=== PATIENT | female | born 1935 | race Caucasian/White ===

== ENCOUNTER → 2016-09-25 13:27 | Outpatient (CLI) | payer MEDICARE, BC ==
[2015-07-03 11:34] VITALS: BMI 23.8
[~2016-09-25 13:27] MED LIST: ATROVENT 0.02%2.5 ML UPD; AVELOX400 MG PO; BAYER ASPIRIN325 MG PO; BROVANA15 MCG/2 M INH; CARDIZEM30 MG PO; CATAPRES0.1 MG PO; DALIRESP500 MCG PO; FLORAJEN3 CAPS460 MG PO; FLUTICASONE PRO16 GM NASAL; GABAPENTIN100 MG PO; GLUCOPHAGE1000 MG PO; GLUCOPHAGE500 MG PO; METOPROLOL TART50 MG PO; MUCINEX DM ER1 EAC1 PO; PLAQUENIL200 MG PO; PLAVIX75 MG PO; PREDNISONE10 MG PO; PROTONIX40 MG PO; PULMICORT0.5 MG/21 UPD; SINGULAIR10 MG PO; TESSALON PERLE100 MG PO; VITAMIN C1000 MG PO; XARELTO15 MG PO; XOPENEX 0.0.63 MG/3 UPD
== END | disposition home or self-care (01) ==
LOC: D.US 13:27
DX: I65.23 Occlusion and stenosis of bilateral carotid arteries (principal)

== ENCOUNTER 2016-11-09 09:11 | Inpatient (IN) | payer MEDICARE, BC ==
[~2016-11-09] VITALS: Ht 167.6 cm; Wt 72.9 kg
[~2016-11-09 09:11] MED LIST changes: -ATROVENT 0.02%2.5 ML UPD; -AVELOX400 MG PO; -BROVANA15 MCG/2 M INH; -CATAPRES0.1 MG PO; -DALIRESP500 MCG PO; -FLORAJEN3 CAPS460 MG PO; -FLUTICASONE PRO16 GM NASAL; -GLUCOPHAGE1000 MG PO; -METOPROLOL TART50 MG PO; -MUCINEX DM ER1 EAC1 PO; -PREDNISONE10 MG PO; -PROTONIX40 MG PO; -PULMICORT0.5 MG/21 UPD; -SINGULAIR10 MG PO; -TESSALON PERLE100 MG PO; -XARELTO15 MG PO; -XOPENEX 0.0.63 MG/3 UPD
[2016-11-09 09:59] LABS: BASOPHILS 0.3 % (0.0-2.0); EOSINOPHILS 0 % (0-7); HEMATOCRIT 35.8 % (36.0-48.0); HEMOGLOBIN 11.9 g/dL (12-16); IMMATURE GRANULOCYTES 0.3 % (0-5); LYMPHOCYTES 3.5 % (15-50); MCH 29.2 pg (26.0-34.0); MCHC 33.2 g/dL (31.0-37.0); MEAN PLATELET VOLUME 9.7 fL (7.4-10.4); MONOCYTES 6.9 % (2-11); PLATELET COUNT 167 10x3/uL (130-400); RBC 4.07 10x6/uL (4.00-5.40); RDW 14.9 % (11.5-14.5); WBC 7.9 10x3/uL (4.8-10.8)
[2016-11-09 10:15] LABS: APTT 25.1 SECONDS (22.8-39.4); INR 1.62 (0.85-1.17); PROTIME 19.2 SECONDS (11.6-15.0)
[2016-11-09 10:21] LABS: ALBUMIN 2.9 g/dL (3.4-5.0); ALKALINE PHOSPHATASE 40 U/L (46-116); ALT (SGPT) 17 U/L (10-68); BILIRUBIN - TOTAL 0.95 mg/dL (0.2-1.3); CALC OSMOLALITY 283 mosm/kg (275-300); CARBON DIOXIDE 24.2 mmol/L (21.0-32.0); CHLORIDE - SERUM 100 mmol/L (98-107); CREATININE - SERUM 0.9 mg/dL (0.6-1.3); GLUCOSE 235 mg/dL (74-106); POTASSIUM - SERUM 3.9 mmol/L (3.5-5.1); PROTEIN - SERUM 7.5 g/dL (6.4-8.2); SODIUM 137 mmol/L (136-145); UREA NITROGEN 19 mg/dL (7-18); eGFR NON AFRICAN AMERICAN 64 mL/min (90-120)
[2016-11-09 10:30] LABS: AMYLASE - SERUM 31 U/L (25-115); CREATINE KINASE 42 UL (21-215); D-DIMER-QUANTITATIVE 4.14 ug/mLFEU (0.20-0.54); LIPASE 90 U/L (73-393); PRO BNP 1845 pg/mL (0-450); TROPONIN-I < 0.017 ng/mL (0.000-0.060)
[2016-11-09 10:54] LABS: APPEARANCE HAZY (CLEAR); BILIRUBIN NEGATIVE (NEGATIVE); COLOR YELLOW (YELLOW); GLUCOSE 500 mg/dL (NEGATIVE); KETONE MODERATE mg/dL (NEGATIVE); LEUKOCYTE ESTERASE NEGATIVE (NEGATIVE); NITRITE NEGATIVE (NEGATIVE); PROTEIN 3+ mg/dL (NEGATIVE); UROBILINOGEN NORMAL (NORMAL); WHITE CELLS - URINE NSEEN /hpf (0-5)
[2016-11-09 10:55] LABS: EPITHELIAL CELLS OCC /hpf (0-5); MUCUS >1+ /lpf (NONE SEEN); RED CELLS - URINE OCC /hpf (0-5); YEAST NONE SEEN /hpf (NONE SEEN)
[2016-11-09 10:56] LABS: AMORPHOUS SEDIMENT <1+ /lpf (NONE SEEN); BACTERIA MODERATE /hpf (NONE SEEN); GRANULAR CAST NONE SEEN /lpf (NONE SEEN); HYALINE CAST NONE SEEN /lpf (NONE SEEN); RED CELL CAST NONE SEEN /lpf (NONE SEEN); SPERMATOZOA NONE SEEN /hpf (NONE SEEN); WAXY CAST NONE SEEN /lpf (NONE SEEN)
--- NOTE | 2016-11-09 12:30 | NUR ---
PT ARRIVED TO UNIT, PT AAOX4. NO C/O PAIN. LEFT AC PIV WITH ABX AND CARDIZEM INFUSING. 3LNC. VSS. SHIFT ASSESSMENT COMPLETED, SEE FLOW SHEET. ROOM FREE OF CLUTTER, CALL LIGHT IN REACH, WILL CONTINUE TO MONITOR PT.
[2016-11-09] MEDS ORDERED: PREDNISONE10 MG PO (12:40)
[2016-11-09 12:41] VITALS: BP 134/77; BMI 24.2
[2016-11-09 13:00] VITALS: BP 129/73
[2016-11-09 14:00] VITALS: BP 125/68
[2016-11-09 15:00] VITALS: BP 164/84
--- NOTE | 2016-11-09 15:35 | NUR ---
DR. ARBOLEDA AT THE BEDSIDE, ALL QUESTIONS ANSWERED, VSS, WILL CONTINUE TO MONITOR PT.
[2016-11-09 16:00] VITALS: BP 129/76
--- NOTE | 2016-11-09 16:15 | NUR ---
CONTACTED DR. WADSWORTH OF FSBS OF 446, WILL CONTINUE TO MONITOR PT.
[2016-11-09 18:14] LABS: % SATURATION 4 % (15-55); IRON 11 ug/dl (35-150); TOTAL IRON BIND CAPACITY 241 ug/dl (260-445); UNSAT IRON BIND CAPACITY 230 ug/dl (150-375)
--- NOTE | 2016-11-09 18:31 | NUR ---
PT REPORT CALLED TO JUSTUS NORIEGA, PT TO TRANSFER TO ROOM 2139 VIA WHEELCHAIR. PT FAMILY INFORMED.
--- NOTE | 2016-11-09 18:43 | NUR ---
LEFT AC PIV INFILTRATED, REMOVED IV, TIP INTACT, RESITED IV TO LEFT FOREARM.
--- NOTE | 2016-11-09 19:15 | NUR ---
PT ARRIVED TO UNIT FROM ICU VIA WHEELCHAIR. DAUGHTER AT BEDSIDE. PT DENIES NEEDS. GIVEN REPORT TO SHARAD ADMINISTRATIVE SUPPORT ASSOCIATE LUZMA
--- NOTE | 2016-11-09 19:55 | NUR ---
ASSESSMENT DONE. PT SITTING UP IN BED WATCHING TV. A/O X3. FAMILY AT BEDSIDE. O2 AT 3L VIA NC. RESP LABORED. PT STATES SHE WEARS OXYGEN AT HOME AT 2LITER, BUT WHEN SHE WALKS AROUND SHE TURNS IT UP TO 3L. TELEMETRY PLACED ON PT, RUNNING SR AT 68. BSC PLACED NEXT TO BED. PT WEARING SCD'S NEEDS MACHINE FOR BED. PT DENIES OTHER NEEDS AT THIS TIME. NO DISTRESS NOTED. CALL LIGHT WITH IN REACH. WILL CONT. TO MONITOR. WILL NOTIFIED VICTORIAN LITERATURE PROFESSOR OF NEED FOR SCD MACHINE.
[2016-11-09 20:00] VITALS: BP 133/71
--- NOTE | 2016-11-09 23:56 | NUR ---
PT SLEEPING. EASILY AWAKEN. IV ANTIBIOTICS INFUSING. PT DENIES NEEDS AT THIS TIME. NO DISTRESS NOTED. FAMILY AT BEDSIDE. CALL LIGHT WITH IN REACH. WILL CONT. TO MONITOR.
[2016-11-10] VITALS: BP 130/66
--- NOTE | 2016-11-10 03:06 | NUR ---
PT SLEEPING. OPENED EYES WHEN NURSE OPENED DOOR. DENIES NEEDS. NO DISTRESS NOTED. FAMILY SLEEPING IN CHAIR AT BEDSIDE. CALL LIGHT WITH IN REACH. WILL CONT. TO MONITOR.
[2016-11-10 04:00] VITALS: BP 137/66
--- NOTE | 2016-11-10 05:17 | NUR ---
POLICY OFFICER AT BEDSIDE TO OBTAIN VITALS, CALL LIGHT IN REACH. WILL CONTINUE WITH PLAN OF CARE.
--- NOTE | 2016-11-10 06:32 | NUR ---
PT SITTING UP IN BED DRINKING COFFEE. FAMILY AT BEDSIDE. A/O. DENIES NEEDS. CALL LIGHT WITH IN REACH.
[2016-11-10 06:46] LABS: BASOPHILS 0 % (0.0-2.0); EOSINOPHILS 0 % (0-7); HEMATOCRIT 30.9 % (36.0-48.0); HEMOGLOBIN 10.3 g/dL (12-16); IMMATURE GRANULOCYTES 0.3 % (0-5); LYMPHOCYTES 3.4 % (15-50); MCH 28.9 pg (26.0-34.0); MCHC 33.3 g/dL (31.0-37.0); MCV 86.8 fL (80.0-100.0); MONOCYTES 4.4 % (2-11); NEUTROPHILS 91.9 % (40-80); PLATELET COUNT 188 10x3/uL (130-400); RBC 3.56 10x6/uL (4.00-5.40)
[2016-11-10 07:15] LABS: ALBUMIN 2.7 g/dL (3.4-5.0); ALKALINE PHOSPHATASE 41 U/L (46-116); ALT (SGPT) 15 U/L (10-68); BILIRUBIN - TOTAL 0.63 mg/dL (0.2-1.3); CALCIUM 8.4 mg/dL (8.5-10.1); CARBON DIOXIDE 22.9 mmol/L (21.0-32.0); CHLORIDE - SERUM 100 mmol/L (98-107); GLUCOSE 302 mg/dL (74-106); MAGNESIUM - SERUM 1.6 mg/dL (1.8-2.4); PROTEIN - SERUM 7.2 g/dL (6.4-8.2); SODIUM 135 mmol/L (136-145); eGFR NON AFRICAN AMERICAN 56 mL/min (90-120)
[2016-11-10 07:16] LABS: CALC OSMOLALITY 287 mosm/kg (275-300); TROPONIN-I < 0.017 ng/mL (0.000-0.060); UREA NITROGEN 31 mg/dL (7-18)
--- NOTE | 2016-11-10 07:50 | NUR ---
0700- AM ROUNDING. RECEIVED REPORT FROM SPRAY PAINTER HELPER NURSE SHARAD. PT IS CURRENTLY LAYIING IN BED ON BACK WITH EYES OPEN RESTING. GUEST MEMBER AT BEDSIDE. ON MONITOR SHOWING SR, HR 90. ALERT AND ORIENTED. ON 02 AT 3L VIA NC. IV SEEN TO LEFT FOREARM WITH NS RUNNING AT KVO. ON EP, WILL CHECK AM LABS AND TX PER PROTOCOL. ON LOVENOX INJECTION FOR DVT PREVENTION ORDERED PER REPORT. NO NEED AT CURRENT TIME. WILL CONTINUE TO MONITOR AND CONTINUE WITH PLAN OF CARE.
[2016-11-10] MEDS ORDERED: CARDIZEM30 MG PO (08:00)
[2016-11-10] MEDS ORDERED: GLUCOPHAGE1000 MG PO (08:01)
[2016-11-10] MEDS ORDERED: PLAVIX75 MG PO (08:01)
--- NOTE | 2016-11-10 11:25 | NUR ---
SHY NORIEGA ASKED ME TO INSERT 20G PIV SO PT CAN HAVE CT SCAN. INSERTED 20G PIV TO R HAND X2 STICKS. PT TOLERATED WELL. SIGNED AND DATED DRESSING. CALLED NOHEMI IN CT AND TOLD HER THAT PT WAS READY.
[2016-11-10 12:00] VITALS: BP 146/77
--- NOTE | 2016-11-10 12:04 | NUR ---
PT TO CT.
--- NOTE | 2016-11-10 12:15 | NUR ---
PT BACK FROM CT VIA BED.
--- NOTE | 2016-11-10 12:29 | NUR ---
PTS BLOOD SUGAR IS 405. COVERED PT WITH INSULIN ORDERED AND NOTFIED BARRETT KEE NP ORDERED. NO NEW ORDERS RECEIVED.
[2016-11-10 13:28] VITALS: Ht 167.6 cm; Wt 72.9 kg
[2016-11-10 16:00] VITALS: BP 127/63
--- NOTE | 2016-11-10 18:13 | NUR ---
AM ROUNDING- PT LAYING IN BED ON BACK WITH EYES OPEN RESTING. SPEECH PATHOLOGY IN ROOM NOW. FAMILY MEMBERS AT BEDSIDE. PTS IV TO LEFT FOREARM WAS ACCIDENTLY PULLED OUT BY PT. CLEANED SITE AND REMOVED IV WITH CATH TIP INTACT. COVERED SITE WITH 2X2 GUAZE AND SECURED WITH TAPE. PTS IV ANTIBIOTICS HOOKED UP TO OTHER IV IN RIGHT HAND. WILL CONTINUE TO MONITOR.
[2016-11-10 19:00] VITALS: BP 150/73
--- NOTE | 2016-11-10 20:10 | NUR ---
ASSESSMENT DONE. PT'S DAUGHTER ASSISTING PT WITH BED BATH. PT A/O. LABORED RESP, WHICH I AM TOLD BY DAUGHTER IS NORMAL FOR PT. SCD'S PLACED ON MACHINE AND TURNED ON PER PT REQUEST. PT DENIES NEEDS AT THIS TIME. CALL LIGHT WITH IN REACH. WILL CONT. TO MONITOR.
[2016-11-11] VITALS: BP 148/64
--- NOTE | 2016-11-11 01:24 | NUR ---
PT SLEEPING. NO DISTRESS NOTED. APPEARS COMFORTABLE. DAUGHTER SLEEPING IN CHAIR AT BEDSIDE. CALL LIGHT WITH IN REACH. WILL CONT. TO MONITOR.
--- NOTE | 2016-11-11 04:20 | NUR ---
PT SLEEPING. APPEARS COMFORTABLE. NO DISTRESS NOTED. RESP EVEN AND SLIGHTLY LABORED. FAMILY AT BEDSIDE. CALL LIGHT WITH IN REACH. WILL CONT. TO MONITOR.
[2016-11-11 05:07] VITALS: BP 120/79
[2016-11-11 05:28] LABS: BASOPHILS 0 % (0.0-2.0); EOSINOPHILS 0 % (0-7); HEMATOCRIT 29.9 % (36.0-48.0); HEMOGLOBIN 9.8 g/dL (12-16); IMMATURE GRANULOCYTES 0.4 % (0-5); LYMPHOCYTES 3.6 % (15-50); MCH 28.6 pg (26.0-34.0); MCHC 32.8 g/dL (31.0-37.0); MCV 87.2 fL (80.0-100.0); MEAN PLATELET VOLUME 9.9 fL (7.4-10.4); MONOCYTES 4.9 % (2-11); NEUTROPHILS 91.1 % (40-80); PLATELET COUNT 183 10x3/uL (130-400); RBC 3.43 10x6/uL (4.00-5.40); RDW 15.1 % (11.5-14.5); WBC 9.5 10x3/uL (4.8-10.8)
[2016-11-11 05:53] LABS: ANION GAP 9.4 mmol/L (8-16); CALCIUM 8.3 mg/dL (8.5-10.1); CARBON DIOXIDE 25.8 mmol/L (21.0-32.0); CREATININE - SERUM 0.9 mg/dL (0.6-1.3); POTASSIUM - SERUM 4.2 mmol/L (3.5-5.1)
--- NOTE | 2016-11-11 05:57 | NUR ---
PT'S FSBS OF 201 NOT TREATED BY THIS NURSE PER PT AND PT'S DAUGHTER REQUEST. D/T BREAKFAST NOT BEING UNTIL 0800.
--- NOTE | 2016-11-11 07:05 | NUR ---
RECEIVED REPORT. ASSUMED CARE OF PATIENT. CALL LIGHT WITHIN REACH. ALERT/AWAKE, SITTING UP IN BED WITH ATTENTION TOWARDS TELEVISION AND CONVERSING WITH DAUGHTER WHOM IS AT BEDSIDE. DENIES NEEDS. RESP EVEN AND UNLABORED. AWAITING FOR INSULIN ADMINISTRATION UNTIL BREAKFAST IS SERVED. NO DISTRESS.
--- NOTE | 2016-11-11 07:56 | NUR ---
FSBS 201. 12 UNITS HUMALOG ADMINISTERED PER SLIDING SCALE AT THIS TIME. PATIENT CONSUMING AM MEAL.
[2016-11-11 08:00] VITALS: BP 178/95
[2016-11-11 08:15] LABS: FOLATE (FOLIC ACID) - SERUM 13.5 ng/mL (>3.0)
[2016-11-11 08:15] LABS: IMMUNOGLOBULIN E 136 IU/mL (0-100)
--- NOTE | 2016-11-11 11:54 | NUR ---
FSBS 274. 16 UNITS HUMALOG ADMINISTERED PER SLIDING SCALE. PATIENT CONSUMING NOON MEAL AT THIS TIME.
[2016-11-11 12:00] VITALS: BP 161/75
[2016-11-11 16:00] VITALS: BP 142/76
--- NOTE | 2016-11-11 16:45 | NUR ---
FSBS 191. 8 UNITS HUMALOG ADMINISTERED PER SLIDING SCALE. NO DISTRESS.
--- NOTE | 2016-11-11 18:41 | NUR ---
RESTING WITH EYES OPEN. CALL LIGHT WITHIN REACH. FAMILY AT BEDSIDE. DENIES NEEDS. NO DISTRESS.
--- NOTE | 2016-11-11 19:30 | NUR ---
LYING IN BED WITH HOB UP SR UP X2, C/L IN REACH. UP TO BSC WITH ASSIST STEPHANIE WELL. DAUGHTER AT BEDISDE FOR NIGHT. O2 @ 3L NC IN USE, RT WRIST IV INTACT WITH NO R/S NOTED AT SITE. TELEMETRY SHOWING HR IN 90S. BILAT SCDS IN PLACE DOES HAVE PURSED LIP BREATHING. ALERT AND ORIENTED X3. CONTINUE TO MONITOR.
[2016-11-11 20:38] VITALS: BP 149/74
--- NOTE | 2016-11-12 | NUR ---
UP TO BSC AND BACK TO BED, DID NOT STEPHANIE WELL. SOB, HR INCREASED, GASPING FOR AIR. RT NOTIFIED, IN ROOM O2 INCREASED TO 10-11 L O2 VIA OXIMIZER, REPOSITIONED FOR C & C. STEPHANIE WELL. O2 SAT COMING UP AND HR COMING DOWN. CALMING DOWN, LESS ANXIETY NOTED. CONTINUE TO MONITOR.
[2016-11-12 00:11] VITALS: BP 175/96
--- NOTE | 2016-11-12 01:37 | NUR ---
HR CONTINUING TO BE OVER 140, B/P175/96. NOTIFIED DR TRAN RECEIVED NEW ORDERS MEDICATION GIVEN W/O DIFF AFTER WAKING PT UP. STEPHANIE WELL. C/L IN REACH, DAUGHTER AT BEDSIDE FOR NIGHT. CONTINUE TO MONITOR.
--- NOTE | 2016-11-12 02:39 | NUR ---
HR NOW COMING DOWN BELOW 140. CONTINUE TO MONITOR. C/L IN REACH.
--- NOTE | 2016-11-12 02:48 | NUR ---
O2 NOW DOWN TO 7L VIA OXIMIZER, O2 SAT 96-97% PER RESP TECH AT THIS TIME. C/L IN REACH. CONTINUE TO MONITOR.
[2016-11-12 04:40] VITALS: BP 113/74
--- NOTE | 2016-11-12 04:45 | NUR ---
HR DOWN TO 100 PER BENCH ASSEMBLER. NO S/S OF ACUTE DISTRESS NOTED. C/L IN REACH.
[2016-11-12 05:59] LABS: BASOPHILS 0.1 % (0.0-2.0); EOSINOPHILS 0 % (0-7); HEMATOCRIT 32.2 % (36.0-48.0); HEMOGLOBIN 10.7 g/dL (12-16); IMMATURE GRANULOCYTES 0.7 % (0-5); LYMPHOCYTES 5.4 % (15-50); MCH 28.8 pg (26.0-34.0); MCHC 33.2 g/dL (31.0-37.0); MCV 86.8 fL (80.0-100.0); MEAN PLATELET VOLUME 9.5 fL (7.4-10.4); MONOCYTES 5.3 % (2-11); NEUTROPHILS 88.5 % (40-80); RBC 3.71 10x6/uL (4.00-5.40); RDW 15.1 % (11.5-14.5)
[2016-11-12 06:01] LABS: PLATELET COUNT 271 10x3/uL (130-400); WBC 12.3 10x3/uL (4.8-10.8)
[2016-11-12 06:18] LABS: ANION GAP 13.3 mmol/L (8-16); CALCIUM 8.6 mg/dL (8.5-10.1); CARBON DIOXIDE 26.2 mmol/L (21.0-32.0); CREATININE - SERUM 0.8 mg/dL (0.6-1.3); POTASSIUM - SERUM 4.5 mmol/L (3.5-5.1)
--- NOTE | 2016-11-12 07:25 | NUR ---
RECEIVED REPORT. ASSUMED CARE OF PATIENT. NO IV ACCESS AT THIS TIME PER NURSE GIVING REPORT. PATIENT SITTING UP IN BED. FAMILY AT BEDSIDE. CALL LIGHT WITHIN REACH. OXIMIZER AT 7L. RESP EVEN AND UNLAOBRED. DENIES NEEDS AT THIS TIME.
[2016-11-12 08:00] VITALS: BP 157/74
--- NOTE | 2016-11-12 09:09 | NUR ---
PT IS ALERT. NEW IV STARTED TO LEFT HAND 22GX1 PT TOLERATED WELL.
[2016-11-12 12:00] VITALS: BP 150/69
--- NOTE | 2016-11-12 12:22 | NUR ---
FSBS 206. 12 UNITS HUMALOG ADMINISTERED PER SLIDING SCALE AT THIS TIME. PATIENT CONSUMING NOON MEAL AT THIS TIME.
[2016-11-12 16:00] VITALS: BP 158/75
--- NOTE | 2016-11-12 17:17 | NUR ---
fsbs 202. 12 units humalog administered per sliding scale. no distress. consuming pm meal at this time.
--- NOTE | 2016-11-12 18:15 | NUR ---
PATIENT SITTING TO CHAIR AT BEDSIDE. ASSISTED PATIENT TO BED. NO DISTRESS. CALL LIGHT WITHIN REACH.
--- NOTE | 2016-11-12 19:30 | NUR ---
IN BED, WITH HOB UP SR UP X2, C/L IN REACH. RESP UNLAB WITH O2 @ 3L VIA NC IN USSE. TELEMETRY SHOWING HR ST PERMONITOR. 22G IV CATH INTACT AND PATENT TO LEFT HAND. NO R/S NOTED AT SITE, UP WITH ASSIST, STEPHANIE WELL. BILAT SCDS IN PLACE TO LOWER LEGS. VOICES NO C/O PAIN OR DISCOMFORT AT THIS TIME. FAMILY AT BEDSIDE FOR NIGHT. CONTINUE TO MONITOR.
[2016-11-12 20:00] VITALS: BP 163/72
--- NOTE | 2016-11-13 00:59 | NUR ---
LYING ON LEFT SIDE IN BED WITH HOB UP SR UP X2, C/L IN REACH. EYES CLOSED, RESP UNLAB WITH NO S/S OF ACUTE DISTRESS NOTED. CONTINUE TO MONITOR.
[2016-11-13 01:55] VITALS: BP 146/79
[2016-11-13 06:17] LABS: BASOPHILS 0.1 % (0.0-2.0); EOSINOPHILS 0 % (0-7); HEMATOCRIT 32.6 % (36.0-48.0); HEMOGLOBIN 10.8 g/dL (12-16); IMMATURE GRANULOCYTES 1.8 % (0-5); MCH 28.1 pg (26.0-34.0); MCHC 33.1 g/dL (31.0-37.0); MCV 84.9 fL (80.0-100.0); MEAN PLATELET VOLUME 9.6 fL (7.4-10.4); MONOCYTES 3.9 % (2-11); NEUTROPHILS 88.2 % (40-80); PLATELET COUNT 276 10x3/uL (130-400); RBC 3.84 10x6/uL (4.00-5.40); RDW 14.9 % (11.5-14.5); WBC 10.5 10x3/uL (4.8-10.8)
[2016-11-13 06:37] LABS: CALC OSMOLALITY 281 mosm/kg (275-300); CHLORIDE - SERUM 101 mmol/L (98-107); CREATININE - SERUM 0.7 mg/dL (0.6-1.3); GLUCOSE 215 mg/dL (74-106); POTASSIUM - SERUM 4.1 mmol/L (3.5-5.1); SODIUM 136 mmol/L (136-145); UREA NITROGEN 25 mg/dL (7-18); eGFR NON AFRICAN AMERICAN 85 mL/min (90-120)
[2016-11-13 06:38] VITALS: BP 182/99
--- NOTE | 2016-11-13 07:46 | NUR ---
AM ROUNDING- RECEIVED REPORT FROM HARI YBARRA (ESTATE MANAGER NURSE). PT IS CURRENTLY SITTING UP IN BED WITH EYES OPEN RESTING. AT BEDSIDE. ON MONITOR SHOWING ST, HR 117. 0N 02 AT 3L VIA NC. 22G IV SEEN TO LEFT HAND THAT IS CURRENTLY SALINE LOCKED. ON LOVENOX INJECTION FOR DVT PREVENTION. SCDS ARE ON. BEDSIDE COMMODE AT BEDSIDE. PT STATES " I AM FEELING MUCH BETTER". NO NEED AT CURRENT TIME. WILL CONTINUE TO MONITOR AND CONTINUE WITH PLAN OF CARE.
[2016-11-13 08:32] VITALS: BP 150/93
--- NOTE | 2016-11-13 11:38 | NUR ---
Patient Name: ANABELL SCHWAB Admission Status: ER Accout number: [id number] Admission Date: 11-09-2016 : 1935 Admission Diagnosis:SHORTNESS OF BREATH Attending: ANDREW Current LOS: 4 Anticipated DC Date: Planned Disposition: Nursing Home Facility Primary Insurance: MEDICARE A & B PLANNED EXTERNAL PROVIDER: [facility], MEDICARE REHAB BED Discharge Planning Comments: * Is the patient Alert and Oriented? Yes 0 * How many steps to enter\exit or inside your home? 3 0 * PCP NONE 0 * Pharmacy [facility] OR [facility] ON [address] 0 * Preadmission Environment Home with Family 0 * ADLs Independent 0 * Equipment Cane Nebulizer Oxygen Walker 0 * Other Equipment HOME AND PORTABLE OXYGEN [facility] PATIENT - MEDICAL EQUIPMENT PROVIDER 0 * List name and contact numbers for known caregivers / representatives who currently or will assist patient after discharge: BARRETT RUELAS, DTR, PETRA SILVA, DTR, SKYE MAK, DTR, 0 * Community resources currently utilized None 0 * Please name any agencies selected above. NONE 0 * Additional services required to return to the preadmission environment? Yes * Can the patient safely return to the preadmission environment? Yes 0 * Has this patient been hospitalized within the prior 30 days at any hospital? No 0 CM MET WITH PT IN ROOM TO DISCUSS DISCHARGE PLANNING AND NEEDS. PT REPORTS LIVING AT HOME INDEPENDENTLY WITH HER SON. PT HAS CANE, NEBULIZER, HOME AND PORTABLE OXYGEN, AND WALKER, PROVIDER IS [facility] PATIENT. PT HAS NO OUTSIDE SERVICES ASSISTING IN THE HOME. CM DISCUSSED AVAILABILITY OF HOME HEALTH, REHAB SERVICES AND MEDICAL EQUIPMENT. PT REPORTS SHE THINKS SHE NEEDS REHAB AND WOULD LIKE TO GO TO [facility] WHERE HER DAUGHTERS WORK. CHOICE SIGNED, IMPORTANT MESSAGE FROM MEDICARE PROVIDED AND EXPLAINED. CM CALLED [facility], , SPOKE TO FRANCISCO AND NOTIFIED OF REFERRAL FOR REHAB. CM FAXED REFERRAL TO [facility] AT [phone]. CM WAITING ADMISSION DETERMINATION FOR REHAB SERVICES FROM [facility]. Rubber Chemist: Ra Corcoran
--- NOTE | 2016-11-13 11:55 | NUR ---
NAVARRO JORGE INFORMED ME OF PTS BLOOD PRESSURE AND HR (193/91, 121). BARRETT KEE NP ON UNIT AND NOTIFIED HER OF THIS. BARRETT KEE NP STATES TO CALL CARDIOLOGY AND SEE IF THEY WANT TO ADD ANYTHING TO PTS MEDICATIONS. WILL CALL CARDIOLOGY AND INFORM THEM OF THIS. WILL CONTINUE TO MONITOR.
--- NOTE | 2016-11-13 11:57 | NUR ---
PAGED DR. TRAN ORDERED BY BARRETT KEE NP. AWAITING CALLBACK.
--- NOTE | 2016-11-13 11:58 | NUR ---
RECEIVED CALLBACK FROM DR. TRAN WITH NEW ORDERS RECEIVED (LOPRESSOR 100MG BID).
[2016-11-13 12:12] LABS: IMMUNOGLOBULIN A 201 mg/dL (64-422); IMMUNOGLOBULIN G 907 mg/dL (700-1600)
[2016-11-13 12:35] VITALS: BP 180/93
[2016-11-13 15:55] VITALS: BP 152/81
--- NOTE | 2016-11-13 16:52 | NUR ---
PT IS CURRENTLY SITTING UP IN BED WITH EYES OPEN RESTING. IS AT BEDSIDE. PT DENIES ANY NEED AT CURRENT TIME. WILL CONTINUE TO MONITOR AND CONTINUE WITH PLAN OF CARE.
--- NOTE | 2016-11-13 19:30 | NUR ---
ASSESSMENT COMPLETE, DENIES NEEDS AT THIS TIME. DAUGHTER AT BEDSIDE FOR NIGHT. LEFT HAND IV SITE WITH NO R/S NOTED AT SITE. O2 @ 3L VIA NC IN PLACE. UP WITH ASSIST, STEPHANIE WELL. HOB UP SR UP X2, C/L IN REACH. CONTINUE TO MONITOR.
[2016-11-13 21:37] VITALS: BP 177/89
--- NOTE | 2016-11-14 02:30 | NUR ---
BP INCREASED, DR ROJAS NOTIFIED, NEW ORDER RECEIVED FOR PRN MEDICATION. WILL ADMINISTER PER ORDERS.
--- NOTE | 2016-11-14 04:37 | NUR ---
BP DOWN AT THIS TIME. 145/79. VOICES NO C/O PAIN OR DISCOMFORT AT THIS TIME. HOB UP SR UP X2, C/L IN REACH. CONTINUE TO MONITOR.
[2016-11-14 05:43] LABS: BASOPHILS 0.1 % (0.0-2.0); EOSINOPHILS 0 % (0-7); HEMATOCRIT 30.8 % (36.0-48.0); HEMOGLOBIN 10.3 g/dL (12-16); IMMATURE GRANULOCYTES 1.6 % (0-5); LYMPHOCYTES 4.9 % (15-50); MCH 28.5 pg (26.0-34.0); MCHC 33.4 g/dL (31.0-37.0); MCV 85.1 fL (80.0-100.0); MONOCYTES 3.7 % (2-11); NEUTROPHILS 89.7 % (40-80); PLATELET COUNT 274 10x3/uL (130-400); RBC 3.62 10x6/uL (4.00-5.40); RDW 14.9 % (11.5-14.5); WBC 10.3 10x3/uL (4.8-10.8)
[2016-11-14 05:54] VITALS: BP 191/97
[2016-11-14 06:02] VITALS: BP 180/93
[2016-11-14 06:48] LABS: CALC OSMOLALITY 285 mosm/kg (275-300); CALCIUM 8.2 mg/dL (8.5-10.1); CARBON DIOXIDE 26.4 mmol/L (21.0-32.0); CHLORIDE - SERUM 103 mmol/L (98-107); CREATININE - SERUM 0.7 mg/dL (0.6-1.3); GLUCOSE 174 mg/dL (74-106); POTASSIUM - SERUM 4.2 mmol/L (3.5-5.1); SODIUM 138 mmol/L (136-145); UREA NITROGEN 28 mg/dL (7-18); eGFR NON AFRICAN AMERICAN 85 mL/min (90-120)
--- NOTE | 2016-11-14 07:21 | NUR ---
PT SITTING UP IN BED DENIES NEEDS WILL CONT TO MONITOR.
[2016-11-14 08:00] VITALS: BP 174/96
[2016-11-14 12:00] VITALS: BP 132/69
--- NOTE | 2016-11-14 14:17 | NUR ---
Nutrition follow-up: Diet: ADA consistent CHO mechanical soft, thin liquids PO intake ~50% average of last 9 meals Labs reviewed FSBS some > 200 mg/dl +BM Wt: 162# RDN will encourage increased po intake; provide food choices with selective menus and honor food preferences within diet restrictions. RDN following.
[2016-11-14 16:00] VITALS: BP 146/76
--- NOTE | 2016-11-14 18:30 | NUR ---
PT SITTING UP IN BED DENIES NEEDS FAMILY AT BEDSIDE WILL CONT TO MONITOR
--- NOTE | 2016-11-14 19:25 | NUR ---
ALERT/AWAKE ORIENTED X 4. DENIES PAIN OR ANY6 NEEDS. IV IN [place]AND INTACT SL. SCD'S ARE ON. ORIENTED TO CALL LIGHT FOR ANY NEEDS.
[2016-11-14 20:00] VITALS: BP 167/82
[2016-11-15] VITALS: BP 191/101
--- NOTE | 2016-11-15 02:53 | NUR ---
RESTING QUIETLY WITH EYES CLOSED. RR 18 EVEN U/L. NO S/S OF PAIN OR DISCOMFORT. FAMILY MEMBER PRESENT IN ROOM.
[2016-11-15 04:00] VITALS: BP 172/84
[2016-11-15 05:57] LABS: BASOPHILS 0.1 % (0.0-2.0); EOSINOPHILS 0 % (0-7); HEMATOCRIT 32.9 % (36.0-48.0); HEMOGLOBIN 11.1 g/dL (12-16); IMMATURE GRANULOCYTES 1.4 % (0-5); LYMPHOCYTES 3.8 % (15-50); MCH 28.8 pg (26.0-34.0); MCHC 33.7 g/dL (31.0-37.0); MCV 85.5 fL (80.0-100.0); MEAN PLATELET VOLUME 9.1 fL (7.4-10.4); MONOCYTES 5.5 % (2-11); NEUTROPHILS 89.2 % (40-80); PLATELET COUNT 327 10x3/uL (130-400); RBC 3.85 10x6/uL (4.00-5.40); WBC 11.8 10x3/uL (4.8-10.8)
[2016-11-15 06:12] LABS: ALBUMIN 2.6 g/dL (3.4-5.0); ALKALINE PHOSPHATASE 43 U/L (46-116); ALT (SGPT) 38 U/L (10-68); CALC OSMOLALITY 277 mosm/kg (275-300); CALCIUM 8.6 mg/dL (8.5-10.1); CARBON DIOXIDE 28.6 mmol/L (21.0-32.0); CHLORIDE - SERUM 100 mmol/L (98-107); CREATININE - SERUM 0.7 mg/dL (0.6-1.3); GLUCOSE 154 mg/dL (74-106); MAGNESIUM - SERUM 1.9 mg/dL (1.8-2.4); POTASSIUM - SERUM 4.2 mmol/L (3.5-5.1); PROTEIN - SERUM 6.4 g/dL (6.4-8.2); SODIUM 134 mmol/L (136-145); UREA NITROGEN 33 mg/dL (7-18); eGFR NON AFRICAN AMERICAN 85 mL/min (90-120)
--- NOTE | 2016-11-15 06:30 | NUR ---
CHECKED BS AT 185, ADMIN 8 UNITS HUMALOG. DENIES PAIN OR ANY NEEDS.
--- NOTE | 2016-11-15 07:35 | NUR ---
SITTING UP IN BED, FAMILY AT BEDSIDE, DENIES NEEDS, BED LOWEST POSITION, CALL LIGHTIN REACH, WILL CONTINUE TO MONITOR
[2016-11-15 08:00] VITALS: BP 185/94
--- NOTE | 2016-11-15 10:41 | NUR ---
RESP UL ON . IV PATENT. CALL LIGHT IN REACH. WILL CONT. PLAN OF CARE.
[2016-11-15 12:00] VITALS: BP 132/81
--- NOTE | 2016-11-15 13:14 | NUR ---
Patient Name: ANABELL SCHWAB Encounter No: [id number] : 1935 Primary Insurance: MEDICARE A & B Anticipated DC Date: 11-15-2016 Planned Disposition: [facility] Facility External Planned Provider: [facility], MEDICARE REHAB BED DCP follow-up note: CM CALLED [facility], , SPOKE TO RODOLFO WHO REPORTED [facility] WILL ACCEPT PT, HIS UNDERSTANDING IS THAT FAMILY WILL BE TRANSPORTING PT TO REHAB AT DISCHARGE. CM FAXED UPDATE TO [facility]. FOR DISCHARGE, FAX DISCHARGE INFORMATION TO [facility] AT [phone]. NURSE REPORT TO BE CALLED TO [facility] AT [phone]. FAMILY TO TRANSPORT. Cytogenetic Technologist: Ra Corcoran
[2016-11-15] MEDS ORDERED: XOPENEX 0.0.63 MG/3 UPD (14:26)
[2016-11-15] MEDS ORDERED: CATAPRES0.1 MG PO (14:26)
[2016-11-15] MEDS ORDERED: BROVANA15 MCG/2 M INH (14:26)
[2016-11-15] MEDS ORDERED: XARELTO15 MG PO (14:26)
[2016-11-15] MEDS ORDERED: METOPROLOL TART50 MG PO (14:26)
[2016-11-15] MEDS ORDERED: ATROVENT 0.02%2.5 ML UPD (14:26)
[2016-11-15] MEDS ORDERED: TESSALON PERLE100 MG PO (14:27)
[2016-11-15] MEDS ORDERED: PULMICORT0.5 MG/21 UPD (14:27)
[2016-11-15] MEDS ORDERED: MUCINEX DM ER1 EAC1 PO (14:28)
[2016-11-15] MEDS ORDERED: PROTONIX40 MG PO (14:28)
[2016-11-15] MEDS ORDERED: SINGULAIR10 MG PO (14:28)
[2016-11-15] MEDS ORDERED: DALIRESP500 MCG PO (14:28)
[2016-11-15] MEDS ORDERED: FLUTICASONE PRO16 GM NASAL (14:28)
[2016-11-15] MEDS ORDERED: FLORAJEN3 CAPS460 MG PO (14:28)
[2016-11-15] MEDS ORDERED: AVELOX400 MG PO (14:30)
[2016-11-15] MEDS ORDERED: PREDNISONE10 MG PO (14:30)
[2016-11-15 16:09] VITALS: BP 132/91
[2016-11-15 20:00] VITALS: BP 150/75
[2016-11-16] VITALS: BP 124/60
[2016-11-16 04:00] VITALS: BP 144/74
[2016-11-16 04:57] LABS: BASOPHILS 0 % (0.0-2.0); EOSINOPHILS 0.1 % (0-7); HEMATOCRIT 30.7 % (36.0-48.0); HEMOGLOBIN 10.3 g/dL (12-16); IMMATURE GRANULOCYTES 1.3 % (0-5); LYMPHOCYTES 5.8 % (15-50); MCH 28.8 pg (26.0-34.0); MCHC 33.6 g/dL (31.0-37.0); MCV 85.8 fL (80.0-100.0); MEAN PLATELET VOLUME 8.7 fL (7.4-10.4); NEUTROPHILS 85.8 % (40-80); PLATELET COUNT 275 10x3/uL (130-400); RBC 3.58 10x6/uL (4.00-5.40); RDW 15.2 % (11.5-14.5); WBC 10.3 10x3/uL (4.8-10.8)
[2016-11-16 05:29] LABS: ALBUMIN 2.6 g/dL (3.4-5.0); ALKALINE PHOSPHATASE 34 U/L (46-116); ALT (SGPT) 33 U/L (10-68); BILIRUBIN - TOTAL 0.55 mg/dL (0.2-1.3); CALC OSMOLALITY 277 mosm/kg (275-300); CARBON DIOXIDE 29.1 mmol/L (21.0-32.0); CHLORIDE - SERUM 101 mmol/L (98-107); CREATININE - SERUM 0.7 mg/dL (0.6-1.3); GLUCOSE 111 mg/dL (74-106); POTASSIUM - SERUM 3.6 mmol/L (3.5-5.1); SODIUM 136 mmol/L (136-145); UREA NITROGEN 27 mg/dL (7-18); eGFR NON AFRICAN AMERICAN 85 mL/min (90-120)
--- NOTE | 2016-11-16 07:40 | NUR ---
AM ROUNDING- RECEIVED REPORT FROM TANK SHOP SUPERVISOR NURSE VIOLETA, RN. PT IS CURRENTLY LAYING IN BED ON BACK WITH EYES OPEN RESTING. ON MONITOR SHOWING SR, HR 79. FSBS ACHS, 132 THIS AM THAT DID NOT NEED COVERAGE PER REPORT. IV SEEN TO LEFT HAND THAT IS CURRENLTY SALINE LOCKED. ON 02 AT 3L VIA NC. SCDS ARE ON. PT STATES " I AM GOING HOME THIS MORNING". WILL CONTINUE TO MONITOR AND CONTINUE WITH PLAN OF CARE.
[2016-11-16 09:09] VITALS: BP 152/77
--- NOTE | 2016-11-16 10:38 | NUR ---
Patient Name: ANABELL WHITEW Encounter No: [id number] : 1935 Primary Insurance: MEDICARE A & B Anticipated DC Date: 11-15-2016 Planned Disposition: [facility] Facility External [facility] DCP follow-up note: CM MET WITH PATIENT TO RE-ASSESS DC PLAN. PT STATED SHE STILL PLANS [facility], BUT STATED THAT HER FAMILY IS NOT GOING TO DRIVE HER THAT SHE IS NOW GOING TO RIDE THE FACILITY [facility]. CM PLACED CALL TO FRANCISCO AT REHAB FACILITY WHO STATED THAT [facility] WILL PROVIDE TRANSPORTAITON TO REHAB FACILITY AND THAT INSTRUMENTATION AND CONTROLS DESIGNER IS ON HIS WAY TO [facility] NOW. NURSE TO CALL REPORT TO SKYE AT [facility]. CM IMM SIGNED AND PLACED IN CHART. Edel Smith RN, CM
--- NOTE | 2016-11-16 10:45 | NUR ---
PETRA RN EXPLAINED PTS D/C INSTRUCTIONS TO HER. PT SIGNED D/C PAPERWORK. D/C PAPERWORK PLACED IN CHART. IV TO LEFT HAND REMOVED WITH CATH TIP INTACT, TOLERATED WELL. HEART MONITOR RETURNED TO TELEMETRY STATION. PT IS AWAITING [facility] STAFF TO COME GET HER. WILL CONTINUE TO MONITOR. 1045- PT D/C VIA WHEELCHAIR WITH [facility] STAFF MEMBER.
--- NOTE | 2016-11-20 13:10 | CN ---
PATIENT NAME:ANABELL SCHWAB [place] MEDICAL RECORD: [id number] : [birth year] LOCATION:DEmil D.2139 ADMIT DATE: 11/09/16 ACCOUNT: [id number] CONSULTING PHYSICIAN: QIAN ARBOLEDA MD REFERRING PHYSICIAN: LADARIUS WADSWORTH MD DATE OF CONSULTATION: 11/09/2016 Cardiology Consultation HISTORY OF PRESENT ILLNESS: An 81-year-old female with history of obstructive pulmonary disease, atrial fibrillation, typically followed by ____, admitted with ____ shortness of breath, fatigue, cough with productive sputum. She was found to have pneumonitis as well, atrial fibrillation with rapid ventricular response. She received IV Cardizem and converted rapidly. She had atrial fibrillation in the past, controlled on beta blockade and calcium channel blockade. We are asked to see her concerning her cardiovascular status. PAST MEDICAL HISTORY: 1. History of hypertension. 2. Obstructive pulmonary disease. 3. Diabetes mellitus. MEDICATIONS: Typically include Plavix 75 q. day, Cardizem 30 b.i.d., prednisone 10 q.day., Bystolic 10 q. day, Glucophage 100 b.i.d., Plaquenil 400 q. day. ALLERGIES: INCLUDE BACTRIM, LEVAQUIN AND MOBIC. SOCIAL HISTORY: Quit smoking. Easily takes care of her ADLs. No set exercise program. She is nondrinker. REVIEW OF SYSTEMS: The patient reports easy bruising but reports no swollen glands. The patient reports no fever, no night sweats, no significant weight gain, no significant weight loss. No significant exercise tolerance. The patient reports no dry eyes, no irritation, no vision change. Patient reports no difficulty hearing and no ear pain. Patient reports no frequent nose bleeds or nose and sinus problems. Patient reports on arm pain on exertion. No shortness of breath while lying down. No history of heart murmur. Patient reports no cough, no wheezing or coughing up blood. Patient reports no abdominal pain, no vomiting. Normal appetite. No diarrhea and not vomiting blood. No nausea and no constipation. Patient reports no incontinence. No difficulty urinating. No hematuria. No increased frequency. Patient reports no muscle aches. No weakness, no arthralgias, no back pain. No swelling of the extremities. Patient reports no abnormal mole, no jaundice, no rashes. Reports no loss of consciousness. No weakness and no numbness. No seizures, dizziness, or headaches. The patient reports no depression, no sleep disturbance, feeling safe in a relationship and no alcohol abuse. Patient reports on fatigue. Reports no runny nose or sinus pressure. No itching, no hives, and no frequent sneezing. PHYSICAL EXAMINATION: GENERAL: Pleasant female in no acute distress, does not appear toxic. VITAL SIGNS: Blood pressure 129/76, pulse 70 and regular. HEENT: Normocephalic, atraumatic. NECK: No JVD or bruit. HEART: Currently is regular. A II/ systolic ejection murmur. CONSULT REPORT [id number] SELINANABELL [place] LUNGS: Good air excursion. ABDOMEN: Soft and nontender. EXTREMITIES: Pulses 2+. There is no edema. NEUROLOGIC: Grossly intact. DIAGNOSTIC DATA: ECG currently shows normal sinus rhythm with nonspecific ST-T changes. IMPRESSION: Atrial fibrillation, suspect acute exacerbation secondary to underlying pneumonitis. She is currently hypoperfusion with increased lactic acid; however, at this point in time would give oral of 240 of Cardizem, can stop the drip in a couple hours if atrial fibrillation becomes more of a problem, use probably a class 3 agent such as Cordarone or Betapace. Further recommendations based on the above. TRANSINT:[id number] Voice Confirmation ID: [id number] DOCUMENT ID: [id number] QIAN ARBOLEDA MD at 1310 CC: [id number] DICTATION DATE: 11/17/16 0959 BOILER OPERATOR HELPER: 11/17/16 1551 DIS IN 11/16/16 [id number] [place] [address]
--- NOTE | 2016-11-24 10:19 | EC ---
PATIENT:ANABELL SCHWAB DATE OF SERVICE: 11/09/16 SEX: F MEDICAL RECORD: [id number] DATE OF : [birth year] LOCATION:D.M2 D.213 AGE OF PATIENT: 81 ADMISSION DATE: 11/09/16 REFERRING PHYSICIAN: INTERPRETING PHYSICIAN: ASAEL TRAN MD ECHOCARDIOGRAM REPORT ECHO CHARGES 4 ECHO COMPLETE CLINICAL DIAGNOSIS: SOB ECHOCARDIOGRAPHIC MEASUREMENTS (adult normal given) AC root (d.<3.7cm) 3.4 LV Septum d (<1.2 cm> 1.7 Valve Excursion 0.6 LV Septum (systole) 2.2 Left Atria (s.<4.0cm> 3.9 LVPW d(<1.2cm) 1.4 RV (d.<2.3cm) 3.2 LVPW (sytole) 2.0 LV diastole(<5.6CM) 4.7 MV E-F(>70mm/sec) LV systole 2.2 LVOT Diameter 1.8 MV exc.(>10mm) Est.ejection fraction (50-75%) Pericardial Effusion N DOPPLER: LVIT A 190 E 123 LA RVSP 63.0 LVOT 107 AOP1/2T Asc. Ao 494 RVOT 79.0 RA PA 131 AV Gradient Peak 98.0 AV Mean 51.2 AV Area 0.5 MV Gradient Peak 14.2 MV Mean 4.3 MV Area COMMENTS: Home Appliance Technician: Braeden JORDAN Quality Control Inspector Heading:Vadim Gar TAPE# PACS DATE OF SERVICE: 11/10/2016 Echocardiogram FINDINGS: 1. Left ventricular chamber size is within normal limits. Left ventricular systolic function is normal. Overall ejection fraction estimated at 50%. 2. Left atrium is within normal limits at 3.9 cm. Right atrium and right ventricular chamber sizes are mildly dilated. 3. Valvular structures: Aortic valve demonstrates severe calcific aortic ECHOCARDIOGRAM REPORT [id number] ANABELL SCHWAB stenosis, valve area calculates to 0.5 cm-squared and there is a gradient of 98 mm across the valve. The remaining valvular structures have normal structure and motion. 4. Doppler interrogation elsewise reveals trace mitral regurgitation, trace tricuspid regurgitation. No other valvular insufficiency or stenosis, but pulmonary systolic pressure is elevated estimated 63 mmHg. 5. No evidence of pericardial effusion or left ventricular thrombus. TRANSINT:[id number] Voice Confirmation ID: [id number] DOCUMENT ID: [id number] ASAEL TRAN MD at 1019 CC: [id number] DICTATION DATE: 11/10/16 144 GOODWILL AMBASSADOR: 11/10/16 2030 DIS IN 11/16/16 [place] [id number] [place] [id number]
== END 2016-11-16 11:19 | DRG 175 ==
LOC: D.ER 09:11 → D.M2 11:00 → D.ICU 11:00 → D.M2 19:00
PROVIDERS: Family Medicine; Internal Medicine Pulmonary Disease; ADMIT Family Medicine
DX: I26.99 Other pulmonary embolism without acute cor pulmonale (principal); J18.9 Pneumonia, unspecified organism; J44.0 Chronic obstructive pulmonary disease with (acute) lower respiratory infection; I47.1 Supraventricular tachycardia; H20.9 Unspecified iridocyclitis; K21.9 Gastro-esophageal reflux disease without esophagitis; I48.91 Unspecified atrial fibrillation; I16.0 Hypertensive urgency; M32.9 Systemic lupus erythematosus, unspecified; M19.90 Unspecified osteoarthritis, unspecified site; D64.9 Anemia, unspecified; M81.0 Age-related osteoporosis without current pathological fracture; E11.40 Type 2 diabetes mellitus with diabetic neuropathy, unspecified; E11.65 Type 2 diabetes mellitus with hyperglycemia; E78.5 Hyperlipidemia, unspecified; I35.0 Nonrheumatic aortic (valve) stenosis; J30.9 Allergic rhinitis, unspecified; Z87.891 Personal history of nicotine dependence

== ENCOUNTER → 2016-12-21 09:07 | Outpatient (CLI) | payer MEDICARE, BC ==
[2016-11-10 13:28] VITALS: BMI 23.8
[~2016-12-21 09:07] MED LIST changes: +ATROVENT 0.02%2.5 ML UPD; +AVELOX400 MG PO; +BROVANA15 MCG/2 M INH; +CATAPRES0.1 MG PO; +DALIRESP500 MCG PO; +FLORAJEN3 CAPS460 MG PO; +FLUTICASONE PRO16 GM NASAL; +GLUCOPHAGE1000 MG PO; +METOPROLOL TART50 MG PO; +MUCINEX DM ER1 EAC1 PO; +PREDNISONE10 MG PO; +PROTONIX40 MG PO; +PULMICORT0.5 MG/21 UPD; +SINGULAIR10 MG PO; +TESSALON PERLE100 MG PO; +XARELTO15 MG PO; +XOPENEX 0.0.63 MG/3 UPD
[2016-12-22 12:18] LABS: IMMUNOGLOBULIN A 107 mg/dL (64-422); IMMUNOGLOBULIN G 674 mg/dL (700-1600)
== END | disposition home or self-care (01) ==
LOC: D.RT 09:07
PROVIDERS: Internal Medicine Pulmonary Disease
DX: J44.9 Chronic obstructive pulmonary disease, unspecified (principal)

== ENCOUNTER → 2017-05-10 07:08 | Outpatient (CLI) | payer MEDICARE, BC ==
[2016-11-10 13:28] VITALS: BMI 23.8
== END ==
LOC: D.RAD 05-04 08:00
DX: J44.9 Chronic obstructive pulmonary disease, unspecified (principal)

== ENCOUNTER → 2017-11-05 12:31 | Outpatient (CLI) | payer MEDICARE, BC ==
[2016-11-10 13:28] VITALS: BMI 23.8
[~2017-11-05 12:31] MED LIST changes: +CELEXA10 MG PO; +FAMOTIDINE10 MG PO; +MULTIPLE VITAMI1 TA1 PO; +PACERONE200 MG PO; +PRESERVISION AR1 CAP PO
== END | disposition home or self-care (01) ==
LOC: D.US 11-02 15:00
DX: I65.22 Occlusion and stenosis of left carotid artery (principal)

== ENCOUNTER 2017-11-09 10:01 | Outpatient (CLI) | payer MEDICARE, BC ==
[~2017-11-09] VITALS: Ht 162.6 cm; Wt 60.5 kg
--- NOTE | ~2017-11-09 | OP ---
PATIENT NAME: PITER SCHWAB [place] MEDICAL RECORD: [id number] :35 LOCATION:D.CAT ADMISSION DATE: SURGEON: ASAEL TRAN MD DATE OF OPERATION: 11/09/2017 PROCEDURES: 1. PTCA, stent of LAD. 2. PTCA, stent of left circumflex. 3. Left heart catheterization. 4. Selective coronary angiography. 5. Aortofemoral runoff. 6. Abdominal aortography. INDICATIONS: Angina, coronary artery disease, claudication, and peripheral vascular disease. PROCEDURE IN DETAIL: After informed consent was obtained and after detailed explanation of the risks and benefits as well as alternative therapies, the patient elected to proceed with angiogram and angioplasty. The right femoral area was prepped and draped in normal sterile fashion. Right femoral artery was cannulated via modified Seldinger technique with placement of 6-Russian sheath. All catheters were exchanged through this sheath. FINDINGS: 1. Abdominal aortography was performed. The catheter was pulled down for aortofemoral runoff. Abdominal aortography reveals very tortuous abdominal aorta, but no hemodynamically significant disease, no renal artery stenosis. 2. RIGHT LEG: A. Iliac: The common internal and external iliacs have moderate irregularities, but no flow-limiting stenosis. B. Femoral system: The common and deep femoral are widely patent. Superficial femoral has 80+ percent stenosis in the distal vessel, otherwise only jyyt-cp-zlpsyxqp irregularities. C. Popliteal and infrapopliteal vessels: The popliteal is widely patent. There is 2-vessel runoff to the foot through the posterior tibial and peroneal. 3. LEFT LEG: A. Iliac: The common internal and external iliacs have hplr-gg-fmiqezbi irregularities, but no flow-limiting stenosis. B. Femoral system: The common and deep femoral are widely patent. Superficial femoral has a 70% to 80% stenosis in the distal vessel. C. Popliteal and infrapopliteal vessels: The popliteal is patent. There is 2-vessel runoff to the foot through the posterior tibial and peroneal. Left ventriculogram was performed in standard 30-degree HEARD view reveals preserved cardiac wall motion, ejection fraction 50%. SELECTIVE CORONARY ANGIOGRAPHY: 1. Left main is with no significant angiographic disease. 2. Left anterior descending has an 80% to 90% stenosis in the mid vessel. 3. The left circumflex has an 80% to 90% stenosis in the mid vessel. 4. Right coronary has 70% stenosis times 2 in the mid vessel. PTCA STENT OF THE LAD AND LEFT CIRCUMFLEX. The LAD was addressed with a 3.0 x 12 mm Integrity, the circumflex with a 2.75 x 18 mm Integrity. Result was 0% residual stenosis. 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 PLAN: For LITHOGRAPHIC PROOFER APPRENTICE, stent of the RCA in the future. TRANSINT:[id number] Voice Confirmation ID: [id number] DOCUMENT ID: [id number] ASAEL TRAN MD at 1351 CC: [id number] DICTATION DATE: 12/04/17 1117 SOFA INSPECTOR: 12/04/17 1234 DEP CLI 11/09/[address] [address]
--- NOTE | ~2017-11-09 | HEMODYNAMI ---
PATIENT:PITER SCWHAB MEDICAL RECORD: [id number] : 35 LOCATION:[facility] ADMISSION DATE: 11/09/17 Generatedon:11/09/201714:59 Patient name: PITER SCHWAB Patient #: [id number] SSN: DO B: 1935 Date of study: 11/09/2017 Page: Of Hemodynamic Procedure Report Patient Data Patient Demographics Procedure consent was obtained First Name: PITER Gender: Female Last Name: JOSSELIN : 1935 [facility] Initial: [place] Age: 82 year(s) Patient #: [id number] Race: Unknown Additional ID: [id number] Contact details [address]: [address] [place] [address] State: [place] City: [place] Zip code: [address] Past Medical History Allergies Allergen Reaction Date Comments Reported Other allergy 11/09/2017 Levaquin, Meloxicam Admission Admission Data Admission Date: 11/09/2017 Admission Time: 10:01 Lab Results Lab Result Date: 11/09/2017 Lab Result Time: 0:00 Biochemistry Name Units Result Min Max BUN mg/dl 22 --(----)-* 7 18 Creatinine mg/dl 0.8 --(-*--)-- 0.6 1.3 CBC Name Units Result Min Max Hemoglobin g/dl 9.6 *-(----)-- 13.5 17.5 Procedure Procedure Types Cath Procedure Diagnostic Procedure [facility] w/Coronaries Sedation Charges Moderate Sedation up to 15 minutes PCI Procedure Coronary Stent Coronary Stent Initial x2 Peripheral Cath Diagnostic Procedure Cath Peripheral Lmmjx-Ltibnib-Eve-Off Procedure Description Procedure Date Procedure Date: 11/09/2017 Procedure Start Time: 14:29 Procedure End Time: 14:58 Procedure Staff Name Function Giancarlo Munson MD Performing Physician Evelin Sanchez RT Monitor Luis Cohen RN Nurse Be Zamarripa RT Scrub Procedure Data Cath Procedure Fluoroscopy Diagnostic fluoroscopy Total fluoroscopy Time: 5.7 time: 5.7 min min Diagnostic fluoroscopy Total fluoroscopy dose: 660 dose: 660 mGy mGy Contrast Material Contrast Material Type Amount (ml) Isovue 300 144 Entry Location Entry Primary Successful Side Size Upsize Upsize Entry Closure Succes sful Closure Location (Fr) 1 (Fr) 2 (Fr) Remarks Device Remarks Femoral Right 5 Fr 6 Fr Exoseal artery Short Estimated blood loss: 10 ml Diagnostic catheters Device Type Used For End Catheter Placement MULTIPACK Pigtail 5 Fr Procedure catheter MULTIPACK JL 4.0 5Fr Procedure catheter MULTIPACK 3DRC 5Fr Procedure catheter Procedure Complications No complications Procedure Medications Medication Administration Route Dosage 0.9% NaCl I.V. 100 ml/hr Oxygen NC 2 l/min Heparin Flush Bag added to field 2 bags (1000units/500ml NS) Lidocaine 2% added to field 20 Versed I.V. 0.5 mg Fentanyl I.V. 25 mcg Heparin Bolus I.V. 4000 units Integrilin (Bolus I.V. 5.6 ml 2mg/ml) Integrilin (Bolus wasted 4.4 ml 2mg/ml) Plavix P.O. 600 mg Fentanyl I.V. 25 mcg Hemodynamics Rest HGB: 9.6 (g/dl) Heart Rate: 77 (bpm) Snapshots Pre Cath Intra NCS Post Cath Vital Signs Time Heart Resp SPO2 etCO2 NIBP (mmHg) Rhythm Pain Sedation Rate (ipm) (%) (mmHg) Status Level (bpm) 14:06:32 86 24 96 0 173/105(143) NSR 0 (11) 10(A) , No pain 14:11:16 77 23 95 0 157/79(122) NSR 0 (11) 10(A) , No pain 14:15:57 78 22 99 0 156/90(120) NSR 0 (11) 10(A) , No pain 14:21:09 76 23 97 0 156/83(114) NSR 0 (11) 10(A) , No pain 14:25:51 76 18 96 0 153/81(120) NSR 0 (11) 10(A) , No pain 14:30:34 75 18 97 0 165/80(129) NSR 0 (11) 9(A) , No pain 14:35:16 82 19 97 0 155/88(130) NSR 0 (11) 9(A) , No pain 14:39:57 111 20 97 0 146/86(109) NSR 0 (11) 9(A) , No pain 14:44:38 81 20 96 0 159/84(107) NSR 0 (11) 9(A) , No pain 14:49:22 78 20 94 0 160/76(129) NSR 0 (11) 10(A) , No pain 14:54:05 76 25 94 0 170/82(126) NSR 0 (11) 10(A) , No pain 14:59:18 82 23 0 177/88(133) NSR 0 (11) 10(A) , No pain Medications Time Medication Route Dose Verified Delivered Reason Notes Effectiveness by by 14:08:19 0.9% NaCl I.V. 100 Luis Ulis Per physician ml/hr Noel Cohen RN RN 14:08:32 Oxygen NC 2 Luis Luis Per physician l/min Noel Cohen RN RN 14:08:42 Heparin Flush added 2 Luis Luis used for Bag to bags Noel Cohen procedure (1000units/500ml field NORIEGA RN NS) 14:08:54 Lidocaine 2% added 20ml Luis Luis for local to vial Noel Cohen anesthetic field NORIEGA RN 14:24:26 Versed I.V. 0.5 Luis Luis for sedation mg Noel Cohen RN RN 14:24:35 Fentanyl I.V. 25 Luis Luis for sedation mcg Noel Cohen RN RN 14:42:56 Heparin Bolus I.V. 4000 Luis Luis for units Noel Cohen anticoagulation RN RN 14:43:46 Integrilin I.V. 5.6 Luis Luis for (Bolus 2mg/ml) ml Noel Cohen antiplatelet RN RN therapy 14:43:58 Integrilin wasted 4.4ml Luis Luis to sharp's (Bolus 2mg/ml) Noel Cohen RN RN 14:50:09 Plavix P.O. 600 Luis Luis for mg Noel Cohen antiplatelet RN RN therapy 14:56:56 Fentanyl I.V. 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 Start room use. 14:05:09 Time tracking: Regular hours 14:05:15 Plan of Care:Hemodynamics will remain stable., Cardiac rhythm will remain stable., Comfort level will be maintained., Respiratory function will remain adequate., Patient/ family verbilizes understanding of procedure., Procedure tolerated without complication., Recovers from procedure without complications.. 14:05:33 Patient received from Pre/Post Procedure Room to CCL 1 Alert and oriented. Tansferred to table in Supine position. 14:05:34 Warm blankets applied, and padmaja hugger turned on for patient comfort. 14:05:35 Correct patient and procedure confirmed by team. 14:05:38 Signed procedure consent form obtained from patient. 14:05:39 ECG and BP/O2 sat monitors applied to patient. 14:05:39 Vital chart was started 14:05:40 Baseline sample Acquired. 14:05:44 Rhythm: sinus rhythm 14:05:48 Full Disclosure recording started 14:06:45 H&P Date Dictated: 11/07/2017 Within 30 days and on chart., H&P Addendum completed by physician on day of procedure. (MUST COMPLETE FOR ALL OUTPATIENTS). 14:07:01 Pre-procedure instructions explained to patient. 14:07:02 Family in waiting room. 14:07:07 Patient NPO since Midnight. 14:07:36 Patient allergic to Other allergyLevaquin, Meloxicam 14:07:41 Is the patient allergic to Iodine/contrast media? No. 14:07:43 Was the patient premedicated? Yes 14:07:45 Is patient on blood thinner?Yes 14:07:55 ACC The patient was administered the following blood thiners within the last 24 hours: Xarelto 14:07:57 Patient diabetic? Yes. 14:07:59 If diabetic: On Metformin? Yes 14:08:04 If on Metformin: Last Dose? 11/08/2017 14:08:09 Snore? Yes 14:08:11 Sleep apnea? No 14:08:19 0.9% NaCl 100 ml/hr I.V. was administered by Luis Cohen RN; Per physician; 14:08:21 Airway obstruction? Yes COPD 14:08:25 Dentures? No ? 14:08:29 Patient pain scale 0/10 ?. 14:08:32 Oxygen 2 l/min NC was administered by Luis Cohen RN; Per physician; 14:08:37 IV patent on arrival in right forearm with 0.9% NaCl at [facility]. 14:08:42 Heparin Flush Bag (1000units/500ml NS) 2 bags added to field was administered by Luis Cohen RN; used for procedure; 14:08:54 Lidocaine 2% 20ml vial added to field was administered by Luis Cohen RN; for local anesthetic; 14::43 Lab Result : BUN 22 mg/dl 14::43 Lab Result : Creatinine 0.8 mg/dl 14::43 Lab Result : Hemoglobin 9.6 g/dl 14:16:43 Lab results completed and on chart. 14:17:29 Bilateral groins area was prepped with chlora-prep and draped in sterile fashion 14:20: Alarms reviewed by R. N. 14:20:28 Sharps counted by scrub and verified by R.N. 14:20:31 Physician paged 14:23:28 Physician arrived 14::29 --------ALL STOP TIME OUT------ 14:23:30 Final Timeout: patient, procedure, and site verified with staff and physician. All members of the team are in agreement. 14:23:37 Bilateral groins site verified by team. 14:23:49 Physical assessment completed. ASA score P 2 - A patient with mild systemic disease as per Giancarlo Munson MD. 14:23:56 Sedation plan: IV Moderate Sedation Medication:Versed, Fentanyl 14:24:09 Use device set Femoral Dx 14:24:10 ACIST Syringe (05376) opened to sterile field. 14:24:11 Bag Decanter () opened to sterile field. 14:24:11 Medline Cath Pack ([id number]) opened to sterile field. 14:24:12 SHEATH 5FR [place] (LTZ313) opened to sterile field. 14:24:13 DIAGNOSTIC WIRE .035 260cm J wire (536397) opened to sterile field. 14:24:14 ACIST Hand Control (69147) opened to sterile field. 14:24:15 ACIST Manifold (52974) opened to sterile field. 14:24:15 DIAGNOSTIC Multipack 5Fr catheter set (AE4599) opened to sterile field. 14:24:16 Tegaderm 4 x 4 (1626W) opened to sterile field. 14:24:18 PERCUTANEOUS ENTRY 19GA needle opened to sterile field. 14:24:26 Versed 0.5 mg I.V. was administered by Luis Cohen RN; for sedation; 14:24:35 Fentanyl 25 mcg I.V. was administered by Luis Cohen RN; for sedation; 14:29:00 Procedure started. 14:29:03 Zero performed for pressure channel P1 14:29:16 Local anesthetic to right femoral artery with Lidocaine 2% by Giancarlo Munson MD.INITIAL ACCESS ONLY 14:29:27 A 5 Fr sheath was inserted into the Right Femoral artery 14:30:59 A MULTIPACK Pigtail 5 Fr catheter was advanced over the wire and used for Procedure. 14:31:50 LV angiography performed. 14:33:29 Abdominal angiogram w/ runoff was performed. 14:33:51 Right leg runoff performed. 14:33:52 Left leg runoff performed. 14:34:18 Catheter removed. 14:35:21 A MULTIPACK JL 4.0 5Fr catheter was advanced over the wire and used for Procedure. 14:35:30 LCA angiography performed. 14:35:52 Catheter removed. 14:36:16 A MULTIPACK 3DRC 5Fr catheter was advanced over the wire and used for Procedure. 14:36:22 RCA angiography performed. 14:36:50 Catheter removed. 14:40:45 CHOICE PT Extra Support 182cm wire ([id number]) opened to sterile field. 14:40:46 GUIDE 6FR XBLAD 4.0 catheter ([id number]) opened to sterile field. 14:40:48 INFLATOR Merit BasixCompak (TY2148) opened to sterile field. 14:40:48 SHEATH Prelude 6Fr 0.035 (CZV-9Y-28-035) opened to sterile field. 14:41:08 Sheath upsized to a 6 Fr Short. 14:41:19 6 Fr XBLAD 4 guide catheter was inserted over the wire 14:42:24 exta support wire advanced. 14:42:26 Wire advanced across lesion. 14:42:56 Heparin Bolus 4000 units I.V. was administered by Luis Cohen RN; for anticoagulation; 14:43:46 Integrilin (Bolus 2mg/ml) 5.6 ml I.V. was administered by Luis Cohen RN; for antiplatelet therapy; 14:43:58 Integrilin (Bolus 2mg/ml) 4.4ml wasted was administered by Luis Cohen RN; to sharp's; 14:44:23 Inflation Number: 1 A INTEGRITY RX 3.0 x 12 stent ([id number]) was prepped and advanced across the Mid LAD. The stent was deployed at 15 VI for 0:07 (min:sec). 14:44:49 Wire redirected to CX. 14:47:45 Inflation Number: 1 A INTEGRITY RX 2.75 x 18 stent ([id number]) was prepped and advanced across the Mid CX. The stent was deployed at 15 VI for 0:26 (min:sec). 14:47:53 Wire removed. 14:47:54 Guide catheter removed. 14:49:36 EXOSEAL 6Fr (EX600) opened to sterile field. 14:50:07 Sheath removed intact; hemostasis achieved with Exoseal to the Right Femoral artery. 14:50:09 Plavix 600 mg P.O. was administered by Luis Cohen RN; for antiplatelet therapy; 14:50:11 Procedure ended.(Physican Out) 14:50:30 Fluoroscopy time 05.70 minutes. 14:50:36 Fluoroscopy dose: 660 mGy 14:50:36 Flurop Dose total: 660 14:51:08 Post right femoral artery:stable 14:51:14 Contrast amount:Isovue 300 144ml. 14:51:32 Post Procedure Pulses reassessed and unchanged 14:51:42 Post-procedure physical assessment completed. ASA score P 2 - A patient with mild systemic disease as per Giancarlo Munson MD. 14:51:48 Post procedure rhythm: sinus rhythm 14:51:52 Estimated blood loss: 10 ml 14:51:54 Post procedure instruction explained to patient.Patient verbalizes understanding. 14:53:24 Procedure type changed to Cath procedure, Diagnostic procedure, LHC, LHC w/Coronaries, Sedation Charges, Moderate Sedation up to 15 minutes, PCI procedure, Coronary Stent, Coronary Stent Initial x2, Peripheral Cath Diagnostic Procedure, Cath Peripheral, Agkjm-Vkloowq-Lba-Off 14:53:27 Procedure and supply charges have been captured, reviewed, submitted and are correct. 14:56:56 Fentanyl 25 mcg I.V. was administered by Luis Cohen RN; for sedation; 14:57:03 Procedure Complication : No complications 14:57:14 VICENTE Bone (L81133) opened to sterile field. 14:58:27 Vital chart was stopped 14:58:28 See physician's report for complete and final results. 14:58:30 Report given to Pre/Post Procedure Room. 14:58:33 Patient transfered to Pre/Post Procedure Room with Stretcher. 14:58:36 Procedure ended. 14:58:36 Full Disclosure recording stopped 14:58:38 End room use (Document Last) 14:59:18 ACC-PCI Only Patient was given prescriptions, or instructed by Giancarlo Munson MD to start/continue the following medications upon discharge: Plavix Intervention Summary Intervention Notes Time ActionType Lesion and Equipment Action# Pressure Duration Attributes Used 14:44:23 Place stent Mid LAD INTEGRITY RX 1 15 00:07 3.0 x 12 stent ([id number]) 14:47:45 Place stent Mid CX INTEGRITY RX 1 15 00:26 2.75 x 18 stent ([id number]) Device Usage Item Name Manufacture Quantity Catalog Number Hospital Part Current Minimal Lot# / Charge Number Stock Stock Serial# Code ACIST Syringe Acist 1 76333 270839 316283 615170 20 (71183) [employer] Bag Decanter Microtek 1 2001S [id number] 48377 399558 5 (2001S) Medical Inc. Medline Cath Cardinal 1 [id number] 528994 15008 163655 5 Pack Health ([id number]) SHEATH 5FR Terumo 1 XTN934 380310 489606 980371 40 [place] (PNJ773) DIAGNOSTIC WIRE St Saqib 1 311900 065708 775123 116846 30 .035 260cm J wire (911839) ACIST Hand Acist 1 60018 568160 065802 102795 5 Control (86183) [employer] Inc ACIST Manifold Acist 1 36035 175685 934561 430976 5 (79539) [employer] Inc DIAGNOSTIC Cardinal 1 OB4956 109940 70556 249234 30 Multipack 5Fr Health catheter set (ML2979) Tegaderm 4 x 4 3M 1 1626W 669802 352370 549099 5 (1626W) PERCUTANEOUS Cook Medical 1 R69986 530619 289729 5 ENTRY 19GA needle MULTIPACK Cardinal 1 696116 5 Pigtail 5 Fr Health catheter MULTIPACK JL Cardinal 1 853240 5 4.0 5Fr Health catheter MULTIPACK 3DRC Cardinal 1 313087 5 5Fr catheter Health CHOICE PT Extra Ledger 1 [id number] 139993 033455 129441 5 Support 182cm Scientific wire ([id number]) GUIDE 6FR XBLAD Cardinal 1 [id number] 652263 100341 747160 3 4.0 catheter Health (11657509) INFLATOR Merit Merit 1 MR1830 067144 291245 361590 15 Casual Steps (GK4706) SHEATH Prelude Merit 1 OIQ-[id number] 121621 4481681 990963 5 6Fr 0.035 Medical (XGT-2F-62-035) INTEGRITY RX Medtronic 1 [id number] 016427 572893 549561 5 [id number] 3.0 x 12 stent ([id number]) INTEGRITY RX Medtronic 1 [id number] 753854 518249 218074 5 [id number] 2.75 x 18 stent ([id number]) EXOSEAL 6Fr Cardinal 1 EX600 634695 025977 726041 10 (EX600) Health FEMSTOP Gold St Saqib 1 C91396 370022 703655 714475 5 ([id number]) Signature Audit [place] Stage Time Signature Unsigned Intra-Procedure 11/09/2017 Evelin Sanchez 2:59:51 PM RT(R) Signatures Monitor : Evelin Sanchez Signature : RT Date : Time : [facility] [address] [facility] [place] [address]
[~2017-11-09 10:01] MED LIST changes: -CELEXA10 MG PO; -FAMOTIDINE10 MG PO; -MULTIPLE VITAMI1 TA1 PO; -PACERONE200 MG PO; -PRESERVISION AR1 CAP PO
[2017-11-09] MEDS ORDERED: CELEXA10 MG PO (10:23)
[2017-11-09] MEDS ORDERED: DALIRESP500 MCG PO (10:23)
[2017-11-09] MEDS ORDERED: PACERONE200 MG PO (10:24)
[2017-11-09] MEDS ORDERED: FAMOTIDINE10 MG PO (10:26)
[2017-11-09] MEDS ORDERED: PRESERVISION AR1 CAP PO (10:27)
[2017-11-09] MEDS ORDERED: MULTIPLE VITAMI1 TA1 PO (10:27)
[2017-11-09] MEDS ORDERED: VITAMIN C1000 MG PO (10:28)
[2017-11-09] MEDS ORDERED: BROVANA15 MCG/2 M INH (10:29)
[2017-11-09 10:36] VITALS: BP 128/59; Ht 162.6 cm; Wt 60.5 kg
[2017-11-09 10:54] LABS: BASOPHILS 0.1 % (0-2); EOSINOPHILS 0.1 % (0-7); HEMATOCRIT 30.9 % (36.0-48.0); HEMOGLOBIN 9.6 g/dL (12-16); IMMATURE GRANULOCYTES 0.3 % (0-5); LYMPHOCYTES 4.3 % (15-50); MCH 28.1 pg (26.0-34.0); MCHC 31.1 g/dL (31.0-37.0); MCV 90.4 fL (80.0-100.0); MEAN PLATELET VOLUME 9.9 fL (7.4-10.4); MONOCYTES 4.3 % (2-11); NEUTROPHILS 90.9 % (40-80); RBC 3.42 10x6/uL (4.00-5.40); RDW 15.4 % (11.5-14.5); WBC 6.7 10x3/uL (4.8-10.8)
[2017-11-09 11:01] LABS: PLATELET COUNT 116 10x3/uL (130-400)
[2017-11-09 11:06] LABS: ANION GAP 11.8 mmol/L (8-16); CALCIUM 8.8 mg/dL (8.5-10.1); CARBON DIOXIDE 31.2 mmol/L (21.0-32.0); CREATININE - SERUM 0.8 mg/dL (0.6-1.3)
[2017-11-09] MEDS ORDERED: PLAVIX75 MG PO (15:28)
== END 2017-11-09 19:00 | disposition home or self-care (01) ==
LOC: D.CATH 10:01
PROVIDERS: Internal Medicine Interventional Cardiology
DX: I25.119 Atherosclerotic heart disease of native coronary artery with unspecified angina pectoris (principal); I70.219 Atherosclerosis of native arteries of extremities with intermittent claudication, unspecified extremity; J44.9 Chronic obstructive pulmonary disease, unspecified; E11.9 Type 2 diabetes mellitus without complications; I10 Essential (primary) hypertension; Z01.812 Encounter for preprocedural laboratory examination